=== PATIENT | male | born 2005 | race Caucasian/White ===

== ENCOUNTER 2023-01-15 22:13 | Emergency (ER) | payer OTHER, SELFPAY ==
[2023-01-15 22:14] VITALS: BP 135/104; PULSE 115; RESP 16; TEMP 36.9; O2SAT 99; BMI 23.7
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
[2023-01-15 23:07] VITALS: BP 136/78; PULSE 67; RESP 18; TEMP 36.7; O2SAT 98
== END 2023-01-15 23:08 | disposition home or self-care (01) ==
PROVIDERS: Emergency Provider Emergency Medicine
DX: R51.9 Headache, unspecified (principal); Y00.XXXA Assault by blunt object, initial encounter; F17.200 Nicotine dependence, unspecified, uncomplicated
CPT/HCPCS: 99283